=== PATIENT | female | born 1930 | race Caucasian/White ===

== ENCOUNTER 2017-05-22 20:42 | Emergency (ER) | payer MEDICARE, OTHER ==
[~2017-05-22] VITALS: Ht 160 cm; Wt 70.0 kg
[~2017-05-22 20:42] MED LIST: HYDR25TA98 PO
[2017-05-22 20:50] VITALS: Ht 160 cm; Wt 70.0 kg
[2017-05-22] MEDS ORDERED: FURO40TA4 PO (22:07)
--- NOTE | 2017-05-22 22:07 | RADRPT ---
PROCEDURE: CT HEAD WITHOUT CONTRAST: CLINICAL INDICATION: 87 years of age, female, head injury with laceration . COMPARISON: None available. TECHNIQUE: CT of the head was performed without IV contrast. Coronal and sagittal reformatted images were obtained from the axial source images. Images were reviewed on a high-resolution PACS workstat ion. Dose information: The estimated radiation dose (CTDIvol mGy) for each series in this exam is 44.5. The estimated cumulative dose (DLP mGy-cm) is 720.2 One or more of the following dose reduction techniques were used: - Automated exposure control. - Adjustment of the mA and/or kV according to patient size. - Use of iterative reconstruction technique. FINDINGS: Parenchyma: Negative for evidence of acute intracranial hemorrhage, significant mass effect or midli ne shift. There are nonspecific patchy low density changes in the supratentorial deep white matter that are nonspecific but likely due to chronic small vessel ischemia. Bowling-white matter differentia tion is maintained. Moderate and predominantly frontal cerebral tissue loss. Mild intracranial athe rosclerosis. Ventricles and extra-axial spaces: Prominence of the ventricles proportionate to the sulci in keepin g with cerebral tissue loss. No abnormal extra-axial fluid collections are identified. Visualized paranasal sinuses: Clear. Mastoid air cells: Clear. Bones: Negative for evidence of acute fracture. Additional comment: Small subgaleal hematoma involving the scalp at the left vertex. There is soft-t issue swelling with bubbles of gas in the prefrontal region superior to the bridge of the nose in ke eping with small hematoma and laceration. IMPRESSION: 1. Negative for evidence of acute intracranial injury. Negative for evidence of acute intracranial hemorrhage or mass effect. 2. Small subgaleal hematoma involving the scalp at the left vertex and small hematoma and laceration in the prefrontal scalp above the bridge of the nose. Negative for underlying calvarial fracture. 3. Nonspecific patchy low density changes in the supratentorial deep white matter are nonspecific b ut likely due to chronic small vessel ischemia. If there is concern for recent ischemia, consider MR I brain for further evaluation. 3. Mild intracranial atherosclerosis. Moderate cerebral tissue loss. RPTAT: HCTS Claudiay Sadro, Physician Date Time Electronically viewed and signed by Lauren Denise, Physician on 05/22/2017 22:07 CS/
[2017-05-22] MEDS ORDERED: FER325 PO (22:08)
[2017-05-22] MEDS ORDERED: CHOL100062 PO (22:08)
--- NOTE | 2017-05-22 22:08 | RADRPT ---
PROCEDURE: XR Knee. CLINICAL INDICATION: 87 years of age, female. Left knee pain. Fall. TECHNIQUE: Three views of the left knee. COMPARISON: None available. FINDINGS: There is a cemented total knee replacement with the expected postoperative appearance. Negative for abnormal wear of the polyethylene liner. Negative for evidence of acute fracture. Normal alignment. Negative for evidence of a joint effusion. Negative for significant soft tissue swelling. IMPRESSION: Cemented total knee replacement without evidence of complications. Negative for acute fracture. RPTAT: HCTS Physician Ashly Date Time Electronically viewed and signed by Physician Ashly on 05/22/2017 22:08 /
--- NOTE | 2017-05-22 23:03 | ERA ---
ER Documentation Chief Complaint Date/Time DATE: 05/22/17 TIME: 23:02 Chief Complaint LAC TO FOREHEAD AND LEFT KNEE PAIN S/P MECHANICAL FALL (MACEY IQBAL MD) HPI The patient is a 87-year-old female, presenting with acute nasal pain and acute left knee pain after a mechanical fall about 8 PM today. He denies syncope, near syncope, seizure, neck pain, chest pain, dyspnea, abdominal pain, vomiting. She did not know her last tetanus. She does not smoke nor drink Past medical history: CAD, anemia, hypertension, aortic stenosis Past surgical history: Pacemaker, left knee arthroplasty (MACEY IQBAL MD) ROS All systems reviewed and are negative except as per history of present illness. (MACEY IQBAL MD) Medications Home Meds Reported Medications Cholecalciferol* (Vitamin D3*) 1,000 Unit Tablet, 1000 UNIT PO BID, TAB 05/22/17 Ferrous Sulfate* (Ferrous Sulfate*) 325 Mg Tabec, 325 MG PO TID, TAB 05/22/17 Furosemide* (Furosemide*) 40 Mg Tablet, 60 MG PO DAILY, TAB 05/22/17 Discontinued Reported Medications Hydralazine Hcl* (Hydralazine Hcl*) 25 Mg Tablet, 25 MG PO DAILY 11/18/12 Allergies Allergies: Coded Allergies: No Known Drug Allergies (Verified Allergy, Unknown, 05/22/17) Sulfa (Sulfonamide Antibiotics) (Verified Allergy, Unknown, 05/22/17) PMhx/Soc History of Surgery: Yes (D AND C , T AND A) Anesthesia Reaction: No Hx Neurological Disorder: No Hx Respiratory Disorders: No Hx Cardiac Disorders: Yes (HTN, CHF, ASHD) Hx Psychiatric Problems: No Hx Miscellaneous Medical Probl: No (GET) Hx Alcohol Use: Yes (RARE) Hx Substance Use: No Hx Tobacco Use: No Smoking Status: Never smoker (MACEY IQBAL MD) Physical Exam Vitals Vital Signs Date Time Temp Pulse Resp B/P Pulse Ox O2 Delivery O2 Flow Rate FiO2 05/22/17 20:50 98.7 65 16 148/78 99 (ANY FERREIRA PA-C) Physical Exam Const: No acute distress. Head: Atraumatic. Eyes: Normal Conjunctiva.Bilateral inferior orbital ecchymosis, no nystagmus ENT: Normal External Ears, Nose and Mouth.Nasal bridge laceration and edema, no active bleeding, no septal hematoma Neck: Full range of motion. No meningismus. Resp: Clear to auscultation bilaterally. Cardio: Regular rate and rhythm. Abd: Soft, non distended, normal bowel sounds, non tender. Skin: No petechiae or rashes. Back: No midline or flank tenderness. Ext: No cyanosis, or edema. Neur: Awake and alert. No focal deficit Psych: Normal Mood and Affect. (MACEY IQBAL MD) Results 24 hrs Current Medications Medications (Trade) Dose Ordered Sig/Alma Delia Route PRN Reason Start Time Stop Time Status Last Admin Dose Admin Diphtheria/ Tetanus/Acell Pertussis (Adacel) 0.5 ml ONCE ONCE IM* 05/22/17 23:30 05/22/17 23:31 DC 05/23/17 00:00 (MACEY IQBAL MD) Procedures/[place] [address] Radiology Main Line: [phone] DIAGNOSTIC IMAGING REPORT Patient: JANI PINK : 1930 Age: 87 Sex: F MR #: [id number] DOS: 05/22/17 0000 Ordering MD: ALFONSO SIERRA DO Location: E/R Room/Bed: PROCEDURE: XR Knee. CLINICAL INDICATION: 87 years of age, female. Left knee pain. Fall. TECHNIQUE: Three views of the left knee. COMPARISON: None available. FINDINGS: There is a cemented total knee replacement with the expected postoperative appearance. Negative for abnormal wear of the polyethylene liner. Negative for evidence of acute fracture. Normal alignment. Negative for evidence of a joint effusion. Negative for significant soft tissue swelling. IMPRESSION: Cemented total knee replacement without evidence of complications. Negative for acute fracture. RPTAT: HCTS Physician Ashly Date Time Electronically viewed and signed by Physician Ashly on 05/22/2017 22: 08 CS/ CC: GREEN,[facility] [id number] [place] [address] Radiology Main Line: [phone] DIAGNOSTIC IMAGING REPORT Patient: JANI PINK : 1930 Age: 87 Sex: F MR #: [id number] DOS: 05/22/17 0000 Ordering MD: ALFONSO SIERRA DO Location: E/R Room/Bed: PROCEDURE: CT HEAD WITHOUT CONTRAST: CLINICAL INDICATION: 87 years of age, female, head injury with laceration . COMPARISON: None available. TECHNIQUE: CT of the head was performed without IV contrast. Coronal and sagittal reformatted images were obtained from the axial source images. Images were reviewed on a high-resolution PACS workstation. Dose information: The estimated radiation dose (CTDIvol mGy) for each series in this exam is 44.5. The estimated cumulative dose (DLP mGy-cm) is 720.2 One or more of the following dose reduction techniques were used: - Automated exposure control. - Adjustment of the mA and/or kV according to patient size. - Use of iterative reconstruction technique. FINDINGS: Parenchyma: Negative for evidence of acute intracranial hemorrhage, significant mass effect or midline shift. There are nonspecific patchy low density changes in the supratentorial deep white matter that are nonspecific but likely due to chronic small vessel ischemia. Bowling-white matter differentiation is maintained. Moderate and predominantly frontal cerebral tissue loss. Mild intracranial atherosclerosis. Ventricles and extra-axial spaces: Prominence of the ventricles proportionate to the sulci in keeping with cerebral tissue loss. No abnormal extra-axial fluid collections are identified. Visualized paranasal sinuses: Clear. Mastoid air cells: Clear. Bones: Negative for evidence of acute fracture. Additional comment: Small subgaleal hematoma involving the scalp at the left vertex. There is soft-tissue swelling with bubbles of gas in the prefrontal region superior to the bridge of the nose in keeping with small hematoma and laceration. IMPRESSION: 1. Negative for evidence of acute intracranial injury. Negative for evidence of acute intracranial hemorrhage or mass effect. 2. Small subgaleal hematoma involving the scalp at the left vertex and small hematoma and laceration in the prefrontal scalp above the bridge of the nose. Negative for underlying calvarial fracture. 3. Nonspecific patchy low density changes in the supratentorial deep white matter are nonspecific but likely due to chronic small vessel ischemia. If there is concern for recent ischemia, consider MRI brain for further evaluation. 3. Mild intracranial atherosclerosis. Moderate cerebral tissue loss. RPTAT: HCTS Physician Ashly Date Time Electronically viewed and signed by Lauren Denise Physician on 05/22/2017 22: 07 CS/ CC: ALFONSO SIERRA [place] [address] Radiology Main Line: [phone] DIAGNOSTIC IMAGING REPORT Patient: JANI PINK : 1930 Age: 87 Sex: F MR #: [id number] DOS: 05/22/17 2309 Ordering MD: MACEY IQBAL MD Location: E/R Room/Bed: PROCEDURE: CT facial bones CLINICAL INDICATION: pain, injury TECHNIQUE: Multiphase CT scan of the face was performed in the axial plane. Coronal and sagittal re-formations were performed. The calculated radiation dose measures 526 mGy centimeters. The CTDI measures 29 mGy One or more of the following dose reduction techniques were used: Automated exposure control. Adjustment of the mA and/or kV according to patient size. Use of iterative reconstruction technique. COMPARISON: None FINDINGS: The mandible is identified demonstrating no evidence of fracture or bony dysplasia. There is no evidence of adjacent soft tissue swelling. There are comminuted fractures of the bilateral nasal bones, with mild depression, extending to the anterior nasal septum. There is overlying soft tissue swelling. There is laceration and soft tissue swelling involving the supraorbital scalp. Evaluation of the orbits demonstrates the globes to be normal in their size, shape, and attenuation bilaterally. No definite intra or extraconal soft tissue masses are seen. The optic nerve and nerve sheath complexes bilaterally appear unremarkable. There is mucosal thickening in the paranasal sinuses. IMPRESSION: 1. Comminuted fractures of the bilateral nasal bones with mild depression, with involvement extending to the anterior nasal septum. 2. Laceration and soft tissue swelling involving the supraorbital scalp.. RPTAT: HBST .Elton Sabillon MD, Date Time Electronically viewed and signed by .Elton Sabillon MD, MD on 05/23/2017 00:08 .T/ CC: MACEY IQBAL MD MEDICAL MAKING DECISION: The patient is a 87-year-old female, presenting with acute facial contusion, acute nasal laceration and fracture, acute left knee pain. She was treated with Tdap IM, the laceration was repaired by the PA (MACEY IQBAL MD) #1 Laceration Repair by me: Patient was verbally consented Anesthesia: 1% lidocaine locally Location: Forehead Tendon/Joint/Nerves: No injury Foreign body: None detected after copious irrigation and exploration Technique: Simple Interrupted Sutures 2 using 6-0 ethilon Complexity: No subcutaneous sutures/mucosal repair/ edge excision Post Closure Length: 1 cm #2 Laceration Repair by me: Patient was verbally consented Anesthesia: 1% lidocaine locally Location: Forehead Tendon/Joint/Nerves: No injury Foreign body: None detected after copious irrigation and exploration Technique: Simple Interrupted Sutures 3 using 6-0 ethilon Complexity: No subcutaneous sutures/mucosal repair/ edge excision Post Closure Length: 1.5 cm . #3 Laceration Repair by me: Patient was verbally consented Anesthesia: 1% lidocaine locally Location: Nose Tendon/Joint/Nerves: No injury Foreign body: None detected after copious irrigation and exploration Technique: Simple Interrupted Sutures 5 using 6-0 ethilon Complexity: No subcutaneous sutures/mucosal repair/ edge excision Post Closure Length: 3 cm #4 Laceration Repair by me: Patient was verbally consented Anesthesia: 1% lidocaine locally Location: nose Tendon/Joint/Nerves: No injury Foreign body: None detected after copious irrigation and exploration Technique: Simple Interrupted Sutures 1 using 6-0 ethilon Complexity: No subcutaneous sutures/mucosal repair/ edge excision Post Closure Length: 0.5 cm . . . (ANY FERREIRA-C) Departure Diagnosis: Primary Impression: Facial contusion Additional Impressions: Nasal laceration FRACTURE OF NASAL BONES, INIT ENCNTR FOR CLOSED FRACTURE Left knee injury Condition: Good Comments She was advised to follow-up with the on-call ENT physician Dr Dean in 1-2 days , sooner if needed and return if any concern She was advised to return in 2 days for wound check and 5 days for suture removal (MACEY IQBAL MD) MACEY IQBAL MD May 22, 2017 23:03 ANY FERREIRA PA-C May 22, 2017 23:11
[2017-05-22] MEDS ORDERED: DIPHTH/TET/ACEL PERTUSS (ADULT) 0.5 ML VIAL IM* ONE (23:30)
--- NOTE | 2017-05-23 00:09 | RADRPT ---
PROCEDURE: CT facial bones CLINICAL INDICATION: pain, injury TECHNIQUE: Multiphase CT scan of the face was performed in the axial plane. Coronal and sagittal re-formations were performed. The calculated radiation dose measures 526 mGy centimeters. The CTDI m easures 29 mGy One or more of the following dose reduction techniques were used: Automated exposure control. Adjustment of the mA and/or kV according to patient size. Use of iterative reconstruction technique. COMPARISON: None FINDINGS: The mandible is identified demonstrating no evidence of fracture or bony dysplasia. There is no kirk dence of adjacent soft tissue swelling. There are comminuted fractures of the bilateral nasal bones, with mild depression, extending to the anterior nasal septum. There is overlying soft tissue swelling. There is laceration and soft tissue swelling involving the supraorbital scalp. Evaluation of the orbits demonstrates the globes to be no rmal in their size, shape, and attenuation bilaterally. No definite intra or extraconal soft tissue masses are seen. The optic nerve and nerve sheath complexes bilaterally appear unremarkable. There is mucosal thickening in the paranasal sinuses. IMPRESSION: 1. Comminuted fractures of the bilateral nasal bones with mild depression, with involvement extendi ng to the anterior nasal septum. 2. Laceration and soft tissue swelling involving the supraorbital scalp.. RPTAT: HBST .Elton Sabillon MD, Date Time Electronically viewed and signed by .Elton Sabillon MD, on 05/23/2017 00:08 .T/
[2017-05-23 01:20] VITALS: BP 112/57; PULSE 62; RESP 20
== END 2017-05-23 01:29 | disposition home or self-care (01) ==
LOC: E/R 20:42
DX: S02.2XXA Fracture of nasal bones, initial encounter for closed fracture (principal); S01.21XA Laceration without foreign body of nose, initial encounter; S89.92XA Unspecified injury of left lower leg, initial encounter; I10 Essential (primary) hypertension; I25.10 Atherosclerotic heart disease of native coronary artery without angina pectoris; I50.9 Heart failure, unspecified; W18.39XA Other fall on same level, initial encounter; Y92.9 Unspecified place or not applicable; Z23 Encounter for immunization
CPT/HCPCS: 70450; 70486; 73562; 90471; 90715

== ENCOUNTER 2017-05-27 15:43 | Emergency (ER) | payer MEDICARE, OTHER ==
[~2017-05-27] VITALS: Wt 80.0 kg
[~2017-05-27 15:43] MED LIST changes: +CHOL100062 PO; +FER325 PO; +FURO40TA4 PO; -HYDR25TA98 PO
--- NOTE | 2017-05-27 16:35 | ERD ---
ER Documentation Chief Complaint Date/Time DATE: 05/27/17 TIME: 16:32 Chief Complaint PT HERE FOR SUTURE RMOVAL ON FACIAL LAC REPAIR HPI This is an 87-year-old female presents to the ER for suture removal. Patient has not had any fevers or chills she has not had any discharge from the area. Patient fell forward and had glasses on, injuring herself. Patient states she feels much better at this time. ROS 12 point review of systems was done, all negative except per HPI. Medications Home Meds Reported Medications Cholecalciferol* (Vitamin D3*) 1,000 Unit Tablet, 1000 UNIT PO BID, TAB 05/22/17 Ferrous Sulfate* (Ferrous Sulfate*) 325 Mg Tabec, 325 MG PO TID, TAB 05/22/17 Furosemide* (Furosemide*) 40 Mg Tablet, 60 MG PO DAILY, TAB 05/22/17 Discontinued Reported Medications Hydralazine Hcl* (Hydralazine Hcl*) 25 Mg Tablet, 25 MG PO DAILY 11/18/12 Allergies Allergies: Coded Allergies: Sulfa (Sulfonamide Antibiotics) (Verified Allergy, Unknown, 05/27/17) PMhx/Soc History of Surgery: Yes (D AND C , T AND A) Anesthesia Reaction: No Hx Neurological Disorder: No Hx Respiratory Disorders: No Hx Cardiac Disorders: Yes (HTN, CHF, ASHD) Hx Psychiatric Problems: No Hx Miscellaneous Medical Probl: No (GET) Hx Alcohol Use: Yes (RARE) Hx Substance Use: No Hx Tobacco Use: No Smoking Status: Never smoker Physical Exam Vitals Vital Signs Date Time Temp Pulse Resp B/P Pulse Ox O2 Delivery O2 Flow Rate FiO2 05/27/17 15:48 98.6 60 17 126/59 100 Physical Exam GENERAL: The patient is well developed and appropriate for usual state of health , in no apparent distress. CHEST: Clear to auscultation bilaterally. There are no rales, wheezes or rhonchi. HEART: Regular rate and rhythm. No murmurs, clicks, rubs or gallops. NEURO: Alert and oriented. SKIN: Extensive areas of ecchymosis throughout face, from trauma. Simple interrupted sutures that extend from the left eyebrow through the nose. No redness, discharge, wound dishiscence. Procedures/MDM Suture Removal by me: Sutures removed with tweezers and scissors without incident. Wound shows no evidence of infection, foreign body, neurologic injury, vascular injury, open joint or tendon laceration. Patient to follow up PRN. Departure Diagnosis: Primary Impression: Encounter for removal of sutures Condition: Stable Patient Instructions: Suture Removal, No Complication Referrals: ROSARIO MAYNARD MD (PCP) Additional Instructions: Call your primary care doctor TOMORROW for an appointment during the next 1-2 days.See the doctor sooner or return here if your condition worsens before your appointment time. EVERETT CALLEJAS May 27, 2017 16:35
== END 2017-05-27 16:41 | disposition home or self-care (01) ==
LOC: FTE 15:43
DX: Z48.02 Encounter for removal of sutures (principal); I10 Essential (primary) hypertension; I50.9 Heart failure, unspecified
CPT/HCPCS: 99281